=== PATIENT | male | born 1980 | race Caucasian/White ===

== ENCOUNTER 2019-09-18 13:24 | Observation (INO) | payer SELFPAY ==
[~2019-09-18] VITALS: Ht 172.7 cm; Wt 79.4 kg
[2019-09-18] MEDS ORDERED: MELO7.5 (13:47)
[2019-09-18] MEDS ORDERED: Percocet 5-3251 EACH PO (13:47)
[2019-09-18 14:50] LABS: BASOPHILS ABSOLUTE AUTO 0.04 K/mm3 (0.00-0.23); BASOPHILS PERCENT AUTO 0 % (0-2); EOSINOPHILS ABSOLUTE AUTO 0.19 K/mm3 (0.00-0.68); EOSINOPHILS PERCENT AUTO 2 % (0-6); Hematocrit 40.7 % (37.0-53.0); Hemoglobin 13.6 g/dL (13.5-17.5); IMMATURE GRAN ABSOLUTE AUTO 0.02 K/mm3 (0.00-0.10); IMMATURE GRAN PERCENT AUTO 0 % (0-1); LYMPHOCYTES ABSOLUTE AUTO 2.16 K/mm3 (0.84-5.20); LYMPHOCYTES PERCENT AUTO 20 % (21-46); MONOCYTES ABSOLUTE AUTO 0.94 K/mm3 (0.16-1.47); MONOCYTES PERCENT AUTO 9 % (4-13); Mean Corpuscular HGB 30.5 pg (26.0-34.0); Mean Corpuscular HGB Conc 33.4 g/dL (31.5-36.5); Mean Corpuscular Volume 91 fL (80-100); Mean Platelet Volume 9.6 fL (9.1-12.4); NEUTROPHILS ABSOLUTE AUTO 7.23 K/mm3 (1.96-9.15); NEUTROPHILS PERCENT AUTO 68 % (41-73); Platelet Count 299 K/mm3 (150-400); RDW Coefficient Variation 12.5 % (11.7-14.2); RDW Standard Deviation 41.7 fL (35.1-46.3); Red Blood Cell Count 4.46 M/mm3 (4.30-5.90); White Blood Cell Count 10.58 K/mm3 (4.00-11.30)
[2019-09-18 15:11] LABS: Alanine Aminotransfer (ALT/SGP 20 U/L (12-78); Albumin, Blood 3.4 g/dL (3.4-5.0); Albumin/Globulin Ratio 0.8 (0.8-1.8); Alk Phos 64 U/L (50-136); Anion Gap 4 mmol/L (6-16); Aspartate Aminotrans (AST/SGOT 16 U/L (12-37); Bilirubin, Total 0.3 mg/dL (0.1-1.0); Blood Urea Nitrogen 20 mg/dL (8-24); Bun/Creatinine Ratio 24.3 (12.0-20.0); CO2, Blood 28 mmol/L (21-32); Calcium, Blood 8.7 mg/dL (8.5-10.1); Chloride, Blood 108 mmol/L (98-108); Creatinine, Blood 0.82 mg/dL (0.60-1.20); Ethanol (Alcohol), Blood, Med <3 mg/dL; Globulin, Blood 4.2 g/dL (2.2-4.0); Glomerular Filtration Rate >60 (60-); Glucose, Blood 84 mg/dL (70-99); Potassium, Blood 4.1 mmol/L (3.5-5.5); Salicylate 2.5 mg/dL (2.8-20.0); Sodium, Blood 140 mmol/L (136-145); Total Protein, Blood 7.6 g/dL (6.4-8.2)
[2019-09-18 15:12] LABS: Acetaminophen, Random <2.0 ug/mL (10.0-30.0)
== END 2019-09-18 23:30 | disposition home or self-care (01) ==
LOC: ER 13:24 → EOR 13:25
PROVIDERS: ADMIT Emergency Medicine
DX: F32.9 Major depressive disorder, single episode, unspecified (principal); F43.23 Adjustment disorder with mixed anxiety and depressed mood; M25.559 Pain in unspecified hip; G89.29 Other chronic pain; Z88.8 Allergy status to other drugs, medicaments and biological substances; Z87.891 Personal history of nicotine dependence
CPT/HCPCS: 80053; 85025; 99285; G0378; G0480; Q3014

== ENCOUNTER 2020-02-15 17:13 | Observation (INO) | payer OTHER ==
[~2020-02-15] VITALS: Ht 175.3 cm; Wt 83.3 kg
[~2020-02-15 17:13] MED LIST: CYCL10 PO; ESCI20 PO; MELO7.5; Naprosyn500 MG PO; Percocet 5-3251 EACH PO; TRAM50 PO
[2020-02-15 17:39] LABS: BASOPHILS ABSOLUTE AUTO 0.08 K/mm3 (0.00-0.23); BASOPHILS PERCENT AUTO 1 % (0-2); EOSINOPHILS ABSOLUTE AUTO 0.07 K/mm3 (0.00-0.68); EOSINOPHILS PERCENT AUTO 1 % (0-6); Hematocrit 48.1 % (37.0-53.0); IMMATURE GRAN ABSOLUTE AUTO 0.04 K/mm3 (0.00-0.10); IMMATURE GRAN PERCENT AUTO 0 % (0-1); LYMPHOCYTES ABSOLUTE AUTO 2.99 K/mm3 (0.84-5.20); LYMPHOCYTES PERCENT AUTO 25 % (21-46); MONOCYTES ABSOLUTE AUTO 0.81 K/mm3 (0.16-1.47); MONOCYTES PERCENT AUTO 7 % (4-13); Mean Corpuscular HGB Conc 33.3 g/dL (31.5-36.5); Mean Corpuscular Volume 90 fL (80-100); Mean Platelet Volume 9.6 fL (9.1-12.4); NEUTROPHILS ABSOLUTE AUTO 8.12 K/mm3 (1.96-9.15); NEUTROPHILS PERCENT AUTO 67 % (41-73); Platelet Count 359 K/mm3 (150-400); RDW Coefficient Variation 12.5 % (11.7-14.2); RDW Standard Deviation 41.2 fL (35.1-46.3); Red Blood Cell Count 5.33 M/mm3 (4.30-5.90); White Blood Cell Count 12.11 K/mm3 (4.00-11.30)
[2020-02-15 18:00] LABS: Alanine Aminotransfer (ALT/SGP 25 U/L (12-78); Albumin, Blood 4.5 g/dL (3.4-5.0); Alk Phos 88 U/L (50-136); Anion Gap 13 mmol/L (6-16); Aspartate Aminotrans (AST/SGOT 18 U/L (12-37); Blood Urea Nitrogen 31 mg/dL (8-24); Bun/Creatinine Ratio 17.9 (12.0-20.0); CO2, Blood 17 mmol/L (21-32); Calcium, Blood 8.8 mg/dL (8.5-10.1); Chloride, Blood 108 mmol/L (98-108); Creatinine, Blood 1.73 mg/dL (0.60-1.20); Ethanol (Alcohol), Blood, Med <3 mg/dL; Globulin, Blood 4.6 g/dL (2.2-4.0); Glomerular Filtration Rate 46 (60-); Glucose, Blood 102 mg/dL (70-99); Potassium, Blood 4.2 mmol/L (3.5-5.5); Salicylate 4.2 mg/dL (2.8-20.0); Sodium, Blood 138 mmol/L (136-145); Total Protein, Blood 9.1 g/dL (6.4-8.2)
[2020-02-15 18:01] LABS: Acetaminophen, Random <2.0 ug/mL (10.0-30.0)
[2020-02-15] MEDS ORDERED: IBU800 M1 PO (18:22)
[2020-02-15 18:23] LABS: Base Excess Venous -8.1 mmol/L; Bicarbonate Venous 18.8 mmol/L (24.0-30.0); PCO2 Venous 31.5 mmHg (38-42); PO2 Venous 61.2 mmHg (38-42); pH Blood Venous 7.35 (7.34-7.37)
[2020-02-15 18:25] LABS: Source, Urine Clean Catch
[2020-02-15 18:33] LABS: Bilirubin, Urine Neg (Neg); Blood, Urine 2+ (Neg); Glucose Qualitative, Urine Neg (Neg); Ketones, Urine 1+ (Neg); Leukocyte Esterase, Urine Neg (Neg); Nitrite, Urine Neg (Neg); Protein, Urine 2+ (Neg); Urobilinogen, Urine NORM (Normal)
[2020-02-15 18:38] LABS: Appearance, Urine Hazy (Clear); Color, Urine Yellow (P-Yellow)
[2020-02-15 18:39] LABS: International Normalized Ratio 1.06; Prothrombin Time Results 11.3 Sec (9.7-11.5)
[2020-02-15 18:40] LABS: Bacteria Mod /hpf; Mucus Light (0-Heavy); Red Blood Cells, Urine 0-2 /hpf (0-2); Squamous Epithelial Cells Few /hpf (Few)
[2020-02-15 18:48] LABS: U Amphetamine Screen Not Detected; U Barbituate Screen Not Detected; U Benzodiazapine Screen Not Detected; U Buprenorphine Screen Not Detected; U Cannabinoids Screen DETECTED; U Cocaine Screen Not Detected; U Methadone Screen Not Detected; U Methamphetamine Screen Not Detected; U Opiates Screen Not Detected; U Oxycodone Screen Not Detected; U Phencyclidine Screen Not Detected; U Propoxyphene Screen Not Detected
--- NOTE | 2020-02-15 21:31 | NUR ---
HX OF SUICIDE ATTEMTPS. PT DENIES SI AT THIS TIME BUT IS STILL HIGH RISK
--- NOTE | 2020-02-15 23:30 | NUR ---
CALL PLACED TO DR GLASGOW RE PT C/O ACID REFLUX AND VOMITING. ORDERS RECEIVED FOR REGLAN 10MG IV Q 6 PRN AND A GI COCKTAIL. PT ALSO HAD SOME COMPLAINTS ABOUT PAIN IN HIPS. ORDERS RECEIVED FOR TYLENOL 650MG PO Q6PRN.
--- NOTE | 2020-02-16 | NUR ---
POISON CONTROL CALLED RE UPDATE. INFORMED THEM THAT PT IS CURRENTLY VOMITING EVEN AFTER DOSE OF ZOFRAN IV AND WAS ABOUT TO GIVE PT REGLAN IV AND GI COCKTAIL. DUE TO INGESTION OF IBU PT IS IN MET ACIDOSIS AND POISON CONTROL RECOMMENDED A CMP, ASA LAB DRAW AT MIDNIGHT. LAB TO DRAW. WILL CALL POISON CONTROL BACK AT 0200 WITH LAB RESULTS.
[2020-02-16 00:49] LABS: Bun/Creatinine Ratio 19.2 (12.0-20.0); Calcium, Blood 7.5 mg/dL (8.5-10.1); Creatinine, Blood 1.67 mg/dL (0.60-1.20); Potassium, Blood 3.9 mmol/L (3.5-5.5)
--- NOTE | 2020-02-16 00:51 | NUR ---
PT IS CURRENTLY RESTING COMFORTABLY. NO LONGER VOMITING. NO CURRENT S/S OF DISTRESS
--- NOTE | 2020-02-16 02:16 | NUR ---
POISON CONTROL CALLED FOR LAB WORK UPDATE. RECOMMENDED ANOTHER SALICYLATE DRAW AT 0400 D/T RISING LEVELS. LAB TO DRAW
[2020-02-16 04:30] LABS: BASOPHILS ABSOLUTE AUTO 0.05 K/mm3 (0.00-0.23); BASOPHILS PERCENT AUTO 0 % (0-2); EOSINOPHILS ABSOLUTE AUTO 0.11 K/mm3 (0.00-0.68); EOSINOPHILS PERCENT AUTO 1 % (0-6); Hematocrit 41.1 % (37.0-53.0); Hemoglobin 13.7 g/dL (13.5-17.5); IMMATURE GRAN ABSOLUTE AUTO 0.03 K/mm3 (0.00-0.10); IMMATURE GRAN PERCENT AUTO 0 % (0-1); LYMPHOCYTES ABSOLUTE AUTO 3.25 K/mm3 (0.84-5.20); LYMPHOCYTES PERCENT AUTO 29 % (21-46); MONOCYTES ABSOLUTE AUTO 1.15 K/mm3 (0.16-1.47); MONOCYTES PERCENT AUTO 10 % (4-13); Mean Corpuscular HGB 30.2 pg (26.0-34.0); Mean Corpuscular HGB Conc 33.3 g/dL (31.5-36.5); Mean Corpuscular Volume 91 fL (80-100); Mean Platelet Volume 9.6 fL (9.1-12.4); NEUTROPHILS ABSOLUTE AUTO 6.77 K/mm3 (1.96-9.15); NEUTROPHILS PERCENT AUTO 60 % (41-73); Platelet Count 284 K/mm3 (150-400); RDW Coefficient Variation 12.7 % (11.7-14.2); RDW Standard Deviation 41.8 fL (35.1-46.3); Red Blood Cell Count 4.54 M/mm3 (4.30-5.90); White Blood Cell Count 11.36 K/mm3 (4.00-11.30)
[2020-02-16 04:57] LABS: Albumin, Blood 3.6 g/dL (3.4-5.0); Bilirubin, Total 0.5 mg/dL (0.1-1.0); Bun/Creatinine Ratio 17.6 (12.0-20.0); Calcium, Blood 7.7 mg/dL (8.5-10.1); Creatinine, Blood 1.65 mg/dL (0.60-1.20); Globulin, Blood 3.7 g/dL (2.2-4.0); Potassium, Blood 4.4 mmol/L (3.5-5.5); Total Protein, Blood 7.3 g/dL (6.4-8.2)
--- NOTE | 2020-02-16 05:23 | NUR ---
SHIFT SUMMARY: NO ACUTE CHANGES T/O SHIFT. PT NO LONGER N&V. VSS. SALICYLATES REMAIN ELEVATED BUT OTHER LABS (CO2, ANION GAP) ARE WITHIN NORMAL RANGE. PT DENIES ANY SI AT THIS TIME, HOWEVER REMAINS HIGH RISK D/T HX OF SUICIDE ATTEMPTS IN RECENT PAST. PT HAS BEEN CALM, COOPERATIVE, AND PLEASANT SINCE ADMISSION TO ICU. SBP IN THE 100-110S, HR IN THE 70S. SATS >90%. PT VOIDING INTO URINAL ON OWN. SPOKE WITH POISON CONTROL AGAIN AND WOULD LIKE ANOTHER ASA LEVEL DRAWN AT 0600 D/T LEVEL STILL SLOWLY RISING. WILL PASS REPORT TO ONCOMING SHIFT.
--- NOTE | 2020-02-16 07:40 | NUR ---
CARE ASSUMED CARE AND REPORT ASSUMED FROM KAR MARCIAL. PT LAYING IN BED WATCHING TV. IN NO ACUTE DISTRESS AT THIS TIME. VSS. NSR, HR 70S. BP WNL. SPO2 98% ON RA. LUNG SOUNDS CLEAR. MIV NS INFUSING AT 100 ML/HR PER ORDER. AFEBRILE. DENIES NAUSEA THIS MORNING. DOES COMPLAIN OF BURNING IRRITATION IN EPIGASTRIC REGION. GI COCKTAIL ADMINISTERED THIS AM. PT DENIES SUICIDAL THOUGHTS THIS AM. CURRENTLY IN HIGH RISK SUICIDE WATCH, 1:1. WILL CONTINUE TO MONITOR.
--- NOTE | 2020-02-16 11:39 | NUR ---
REASSESSMENT VSS. PT SITTING UP IN BED EATING LUNCH. TYLENOL 650 MG GIVEN FOR PAIN CONTROL; MILD PAIN IMPROVEMENT. PT WHEELED TO SHOWER WHERE HE SHOWERED HIMSELF. RECEIVED LINEN CHANGE. IS NOW IN PAPER SCRUBS. HE IS CALM AND COOPERATIVE. DENIES ANY CURRENT SUIDICAL THOUGHTS OR THOUGHTS OF WANTING TO HARM HIMSELF. WILL CONTINUE TO MONITOR.
--- NOTE | 2020-02-16 14:41 | NUR ---
Safety Plan complete. Interview with pt today at 0745. He is well groomed, well spoken. He currently lives with his mother after her re-locating him from [place] due to his reported inability to gain medical care for his injured hips in [place]. [place] lived outside of [place] for past 20 years. 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 He has seen an ortho surgeon in [place] for hip surgery, and is awaiting his 2nd nicotine screen for ability to progress with surgery. He reports unable to walk without support and has intense pain, he grimaced several times when readjusting his poisition in bed. He reports increased irritability and depression. He had planned to hang himself a month ago, but reports he came to hospital intead to try and seek help for his hips and SI. He did not want to "go on living like this" in reference to handicap and constant pain, and took OD yesterday. He and his mother were arguing. Has feelings of worthlessness, loss of hope, and issues with inability to work anymore. he has applied for SSD in [place]. Has a 6 year old daughter from previous marriage that lives in [place] with mother. He reports mother left the state of [place] against the shared custody order. He was intent to kill himself, and did tell his mother he had taken pills. He did not call for help, but went to sleep aftr throwing up frequently. Mother called police and ambulance after several hours. He gae impression that he has threatened suicide to his mother before, and his girlfriend in [place]. He has low energy, poor sleep and hopelessness. He was able to engage in brief problem soving interventions. He has been frustrated with the chronic pain, and having to move back home with his mom. 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 Patient recommended to f/u with counseling for depressed mood, and anger issues, which he reports have worsened. he has received counseling in past. Patient was on 1:1 at time of interview for saafety in ICU. He vacillated between his OD attempt was "stupid", and wishing that it had worked. He did cry at times, and was able to engage in brief counseling re: cognitive reframing. Bette Stroud M.Ed., [facility]
[2020-02-16 15:54] LABS: Albumin, Blood 3.3 g/dL (3.4-5.0); Anion Gap 6 mmol/L (6-16); Blood Urea Nitrogen 22 mg/dL (8-24); Bun/Creatinine Ratio 15.5 (12.0-20.0); CO2, Blood 22 mmol/L (21-32); Calcium, Blood 7.3 mg/dL (8.5-10.1); Chloride, Blood 113 mmol/L (98-108); Creatinine, Blood 1.42 mg/dL (0.60-1.20); Glomerular Filtration Rate 58 (60-); Glucose, Blood 107 mg/dL (70-99); Phosphorus, Blood 3.2 mg/dL (2.5-4.9); Potassium, Blood 4.3 mmol/L (3.5-5.5); Sodium, Blood 141 mmol/L (136-145)
--- NOTE | 2020-02-16 16:03 | NUR ---
REASSESSMENT 2 MD HOLD DROPPED BY MD MOSCOSO AND SUICIDE PRECAUTIONS DISCONTINUED. REPEAT CHEMISTRY COMPLETED AND RESULTS CALLED TO MD TURNER. CALLED AND THEN SPOKE WITH POISON CONTROL PER MD TURNER REQUEST; UPDATED ON PT CONDITION AND LAB TRENDS. PT CLEARED BY POISON CONTROL AT THIS TIME AND IS OK TO BE DISCHARGED HOME. VSS. NSR, HR 70S. PT DENIES NAUSEA AND VOMITING. DOES COMPLAIN OF L HIP PAIN THAT IS CURRENTLY BEING MANAGED BY HIS ORTHO DOCTOR HE NEEDS A HIP REPLACEMENT. TYLENOL 650 MG GIVEN FOR PAIN.
[2020-02-16] MEDS ORDERED: PANT40 PO (16:20)
[2020-02-16] MEDS ORDERED: TRAZ50 PO (16:21)
--- NOTE | 2020-02-16 16:42 | NUR ---
DISCHARGE COUNSELED PT ON DISCHARGE INSTRUCTIONS, NEED TO FU WITH HIS PCP, ORTHO, AND PSYCH FOR MEDICATION AND PAIN MANAGEMENT. ENCOURAGED PT TO DRINK LARGE AMOUNTS OF WATER OVER NEXT FEW DAYS TO CLEAR HIS SYSTEM AND TO ONLY USE TYLENOL FOR PAIN CONTROL. PERIPHERAL IVS REMOVED. RX CALLED TO [facility] IN [place]. PT WHEELED TO EXIT AND IS AWAITING RIDE BY HIS FRIEND.
== END 2020-02-16 16:40 | disposition home or self-care (01) ==
LOC: ER 17:13 → ICUE 17:14 → ICUW 17:14 → ICUE 21:29
PROVIDERS: Emergency Medicine; Family Medicine; Physician Assistant; ADMIT Internal Medicine
DX: T43.222A Poisoning by selective serotonin reuptake inhibitors, intentional self-harm, initial encounter (principal); T39.312A Poisoning by propionic acid derivatives, intentional self-harm, initial encounter; N17.9 Acute kidney failure, unspecified; D72.829 Elevated white blood cell count, unspecified; K21.9 Gastro-esophageal reflux disease without esophagitis; M87.852 Other osteonecrosis, left femur; M87.051 Idiopathic aseptic necrosis of right femur; M87.052 Idiopathic aseptic necrosis of left femur; F32.9 Major depressive disorder, single episode, unspecified; Z88.5 Allergy status to narcotic agent; Z88.8 Allergy status to other drugs, medicaments and biological substances; F17.210 Nicotine dependence, cigarettes, uncomplicated; R82.81 Pyuria
CPT/HCPCS: 36415; 80048; 80053; 80069; 81001; 82803; 83605; 83735; 85025; 85610; 85730; 87086; 93005; 93010; 96360; 96361; 96372; 96374; 96375; 96376; 99285-25; A9270; C9113; G0378; G0480; J0696; J1650; J2405; J2765; J7030